=== PATIENT | female | born 1950 | race Caucasian/White ===

== ENCOUNTER → 2018-03-29 10:14 | Outpatient (CLI) | payer MEDICARE, SELFPAY ==
[2018-03-29 11:33] LABS: INR 1.4 (0.9-1.3); Prothrombin Time 16.4 SECONDS (10.1-12.7)
== END ==
PROVIDERS: Visit Provider Internal Medicine
DX: I26.99 Other pulmonary embolism without acute cor pulmonale (principal)
CPT/HCPCS: 36415; 85610

== ENCOUNTER → 2018-04-02 09:47 | Outpatient (CLI) | payer MEDICARE, SELFPAY ==
[2018-04-02 10:58] LABS: INR 2.4 (0.9-1.3); Prothrombin Time 28.2 SECONDS (10.1-12.7)
== END ==
PROVIDERS: PCP Internal Medicine; Visit Provider Internal Medicine
DX: I26.99 Other pulmonary embolism without acute cor pulmonale (principal); I82.90 Acute embolism and thrombosis of unspecified vein
CPT/HCPCS: 36415; 85610

== ENCOUNTER → 2018-04-10 10:06 | Outpatient (CLI) | payer MEDICARE, SELFPAY ==
[2018-04-10 11:11] LABS: INR 2.4 (0.9-1.3); Prothrombin Time 28.6 SECONDS (10.1-12.7)
== END ==
PROVIDERS: Family Provider Family Medicine; PCP Internal Medicine; Visit Provider Internal Medicine
DX: I82.90 Acute embolism and thrombosis of unspecified vein (principal)
CPT/HCPCS: 36415; 85610

== ENCOUNTER → 2018-04-17 10:05 | Outpatient (CLI) | payer MEDICARE, SELFPAY ==
[2018-04-17 10:59] LABS: INR 1.7 (0.9-1.3); Prothrombin Time 19.2 SECONDS (10.1-12.7)
[2018-04-17 11:43] LABS: Hepatitis B Surface Antigen NEGATIVE s/c (NEGATIVE)
[2018-04-17 11:54] LABS: HIV 1 and 2 Antibody NEGATIVE (NEGATIVE); Hep C Virus Ab w/Reflex Quant NEGATIVE s/c (NEGATIVE)
== END ==
PROVIDERS: Family Provider Family Medicine; PCP Internal Medicine; Visit Provider Internal Medicine
DX: I82.90 Acute embolism and thrombosis of unspecified vein (principal); I26.99 Other pulmonary embolism without acute cor pulmonale; Z71.1 Person with feared health complaint in whom no diagnosis is made
CPT/HCPCS: 36415; 85610; 86703; 86803; 87340

== ENCOUNTER → 2018-05-15 09:05 | Outpatient (CLI) | payer MEDICARE, SELFPAY ==
[2018-05-15 10:35] LABS: INR 1.1 (0.9-1.3); Prothrombin Time 12.3 SECONDS (10.1-12.7)
== END ==
PROVIDERS: Family Provider Family Medicine; PCP Internal Medicine; Visit Provider Internal Medicine
DX: I82.90 Acute embolism and thrombosis of unspecified vein (principal); I26.99 Other pulmonary embolism without acute cor pulmonale
CPT/HCPCS: 36415; 85610

== ENCOUNTER → 2018-05-26 10:40 | Outpatient (CLI) | payer MEDICARE, SELFPAY ==
[2018-05-26 12:08] LABS: INR 1.2 (0.9-1.3); Prothrombin Time 14.5 SECONDS (10.1-12.7)
== END ==
PROVIDERS: PCP Internal Medicine; Visit Provider Internal Medicine
DX: I82.90 Acute embolism and thrombosis of unspecified vein (principal)
CPT/HCPCS: 36415; 85610

== ENCOUNTER → 2018-06-04 08:47 | Outpatient (CLI) | payer MEDICARE, SELFPAY ==
[2018-06-04 09:33] LABS: INR 1.8 (0.9-1.3); Prothrombin Time 21.6 SECONDS (10.1-12.7)
== END ==
PROVIDERS: PCP Internal Medicine; Visit Provider Internal Medicine
DX: I26.99 Other pulmonary embolism without acute cor pulmonale (principal)
CPT/HCPCS: 36415; 85610

== ENCOUNTER → 2018-06-26 10:29 | Outpatient (CLI) | payer MEDICARE, SELFPAY ==
[2018-06-26 11:11] LABS: INR 1.6 (0.9-1.3)
== END ==
PROVIDERS: PCP Internal Medicine; Visit Provider Internal Medicine
DX: I26.99 Other pulmonary embolism without acute cor pulmonale (principal)
CPT/HCPCS: 36415; 85610

== ENCOUNTER → 2018-08-07 10:13 | Outpatient (CLI) | payer MEDICARE, SELFPAY ==
[2018-08-07 11:53] LABS: Alanine Aminotransferase 12 IU/L (9-52); Albumin 4.3 g/dL (3.5-5.0); Albumin Globulin Ratio 1.3 (1.0-2.8); Alkaline Phosphatase 69 U/L (38-126); Aspartate Aminotransferase 23 IU/L (14-36); BUN Creatinine Ratio 27.3 (6-22); Bilirubin Total 0.7 mg/dL (0.2-1.3); Blood Urea Nitrogen 30 mg/dL (7-17); Calcium 9.9 mg/dL (8.4-10.2); Carbon Dioxide 32 mmol/L (22-32); Chloride 100 mmol/L (98-107); Cholesterol 206 mg/dL (140-199); Estimated Glomerular Filt Rate 49.7 mL/min (>60); Globulin 3.4 g/dL (1.7-4.1); Glucose 94 mg/dL (80-110); HDL Cholesterol 68 mg/dL (40-60); HEMOLYSIS < 15 (0-50); LDL Cholesterol Calculated 121 mg/dL (<100); Potassium 4.8 mmol/L (3.4-5.1); Sodium 139 mmol/L (137-145); Total Protein 7.7 g/dL (6.3-8.2); Triglycerides 83 mg/dL (35-150)
[2018-08-07 16:12] LABS: Creatinine Urine Random 174.3 mg/dL
[2018-08-07 16:14] LABS: Microalbumin Urine Random 1.4 mg/dL (0-1.6)
== END ==
PROVIDERS: PCP Internal Medicine; Visit Provider Physician Assistant
DX: I10 Essential (primary) hypertension (principal); Z13.220 Encounter for screening for lipoid disorders; Z13.6 Encounter for screening for cardiovascular disorders
CPT/HCPCS: 36415; 80053; 80061; 82043; 82570

== ENCOUNTER → 2018-09-10 14:49 | Outpatient (CLI) | payer MEDICARE, SELFPAY ==
--- NOTE | 2018-09-10 14:51 | DI.MG.S_ITS ---
BILATERAL DIGITAL SCREENING MAMMOGRAM 3D/2D WITH CAD: 09/10/2018 CLINICAL: Routine screening. Comparison is made to exams dated: 12/19/2014 mammogram, 10/28/2011 mammogram, and 12/08/2008 mammogram - [facility]. The tissue of both breasts is predominantly fatty. Current study was also evaluated with a Computer Aided Detection (CAD) system. There is an oval equal density focal asymmetry with an indistinct and circumscribed margin in the left breast at 6 o'clock middle depth. No other significant masses, calcifications, or other findings are seen in either breast. IMPRESSION: INCOMPLETE: NEEDS ADDITIONAL IMAGING EVALUATION The oval equal density focal asymmetry in the left breast is indeterminate. Mediolateral and spot compression views as well as additional views with possible ultrasound are recommended. This exam was interpreted at Station ID: [id number]. NOTE: For mammograms, a report in lay terms will be sent to the patient. Approximately 15% of breast malignancies will not be visualized mammographically. In the management of a palpable breast mass, a negative mammogram must not discourage biopsy of a clinically suspicious lesion. Electronically Signed By: Jhonny zapata/tabby:09/10/2018 16:53:16 letter sent: Additional Imaging Needed ACR BI-RADS Category 0: Incomplete 3340F
== END ==
PROVIDERS: PCP Physician Assistant; Visit Provider Physician Assistant
DX: Z12.31 Encounter for screening mammogram for malignant neoplasm of breast (principal)
CPT/HCPCS: 77063; 77067

== ENCOUNTER → 2018-09-25 09:23 | Outpatient (CLI) | payer MEDICARE, SELFPAY | PROVIDERS: PCP Physician Assistant; Visit Provider Physician Assistant | DX: Z12.11 Encounter for screening for malignant neoplasm of colon (principal) | CPT/HCPCS: 82274 ==

== ENCOUNTER → 2018-10-01 08:45 | Outpatient (CLI) | payer MEDICARE, SELFPAY ==
--- NOTE | 2018-10-01 08:48 | DI.US.S_ITS ---
LIMITED ULTRASOUND OF LEFT BREAST: 10/01/2018 CLINICAL: Patient returns today to evaluate a focal asymmetry in the left breast. Comparison is made to exams dated: 10/01/2018 mammogram, 09/10/2018 mammogram, and 12/19/2014 mammogram - [facility]. Color flow and real-time ultrasound of the left breast 4-6 o'clock region were performed. Vogt scale images of the real-time examination were reviewed. There is a 0.7 x 0.5 x 0.3 cm oval iindistinct hypoechoic probable complicated cyst versus intramammary lymph node with no vascularity on Doppler ultrasound located in the left breast at 4 o'clock 5 cm from the nipple. This appears to correlate with the finding seen on mammography. IMPRESSION: PROBABLY BENIGN 0.7 x 0.5 x 0.3 cm probable complicated cyst versus intramammary lymph node in the left breast at 4 o'clock 5 cm from the nipple. A follow-up mammogram and an ultrasound in 6 months is recommended to demonstrate stability. The patient is advised to monitor her breasts and to return sooner for re-evaluation should she feel anything grow or change. This exam was interpreted at Station ID: [id number]. Electronically Signed By: Francis Westbrook M.D. ecl/:10/01/2018 11:42:37 letter sent: Followup Recommended Ultrasound BI-RADS: 3 Probably benign
--- NOTE | 2018-10-01 08:48 | DI.MG.S_ITS ---
UNILATERAL LEFT DIGITAL DIAGNOSTIC MAMMOGRAM 3D/2D WITH ADDITIONAL VIEWS: 10/01/2018 CLINICAL: Additional evaluation requested from prior study. Comparison is made to exams dated: 09/10/2018 mammogram, 12/19/2014 mammogram, and 10/28/2011 mammogram - [facility]. There are scattered fibroglandular elements in left breast. Previously identified oval equal density focal asymmetry with an indistinct and circumscribed margin in the left breast at 6 o'clock middle depth on comparison screening mammograms of 09/10/18 persists with additional views, and localizes to slightly more lateral in the lower outer quadrant of the left breast on spot compression views. Vascular calcifications are noted. No other significant masses, calcifications, or other findings are seen in the breast. IMPRESSION: INCOMPLETE: NEEDS ADDITIONAL IMAGING EVALUATION Previously identified oval equal density focal asymmetry with an indistinct and circumscribed margin in the left breast at 6 o'clock middle depth on comparison screening mammograms of 09/10/18 persists with additional views, and localizes to slightly more lateral in the lower outer quadrant of the left breast on spot compression views. A targeted ultrasound is recommended for further evaluation, and will be performed immediately following this exam. This exam was interpreted at Station ID: [id number]. NOTE: For mammograms, a report in lay terms will be sent to the patient. Approximately 15% of breast malignancies will not be visualized mammographically. In the management of a palpable breast mass, a negative mammogram must not discourage biopsy of a clinically suspicious lesion. Electronically Signed By: Francis Westbrook M.D. ecl/:10/01/2018 11:39:28 ACR BI-RADS Category 0: Incomplete 3340F
== END ==
PROVIDERS: PCP Physician Assistant; Visit Provider Nurse Practitioner
DX: R92.8 Other abnormal and inconclusive findings on diagnostic imaging of breast (principal); N64.89 Other specified disorders of breast
CPT/HCPCS: 76642; 77065; G0279

== ENCOUNTER → 2018-10-15 11:13 | Outpatient (CLI) | payer MEDICARE, SELFPAY ==
[2018-10-17 19:46] LABS: Fecal Immunochemical Test NOT DETECTED (NOT DETECTED)
== END ==
PROVIDERS: PCP Physician Assistant; Visit Provider Physician Assistant
DX: Z12.11 Encounter for screening for malignant neoplasm of colon (principal)
CPT/HCPCS: 82274

== ENCOUNTER → 2019-01-28 10:49 | Outpatient (CLI) | payer MEDICARE, SELFPAY ==
[2019-01-28 13:23] LABS: Blood Urea Nitrogen 21 mg/dL (7-17); Calcium 9.9 mg/dL (8.4-10.2); Carbon Dioxide 28 mmol/L (22-32); Chloride 105 mmol/L (98-107); Estimated Glomerular Filt Rate 55.5 mL/min (>60); Glucose 130 mg/dL (80-110); HEMOLYSIS < 15 (0-50); Potassium 4.8 mmol/L (3.4-5.1); Sodium 142 mmol/L (137-145)
== END ==
PROVIDERS: PCP Physician Assistant; Visit Provider Physician Assistant
DX: I10 Essential (primary) hypertension (principal); R79.89 Other specified abnormal findings of blood chemistry
CPT/HCPCS: 36415; 80048

== ENCOUNTER → 2019-09-05 09:02 | Outpatient (CLI) | payer MEDICARE, SELFPAY ==
--- NOTE | 2019-09-05 09:03 | DI.MG.S_ITS ---
UNILATERAL LEFT DIGITAL DIAGNOSTIC MAMMOGRAM 3D/2D SHORT-TERM FOLLOW-UP: 09/05/2019 CLINICAL: Short follow up left. Comparison is made to exams dated: 10/01/2018 mammogram, 09/10/2018 mammogram, and 12/19/2014 mammogram - [facility]. The tissue of left breast is predominantly fatty. There is an oval equal density focal asymmetry with an obscured margin in the left breast at 7 o'clock middle depth. This is not significantly changed. No other significant masses or calcifications are seen in the breast. IMPRESSION: INCOMPLETE: NEEDS ADDITIONAL IMAGING EVALUATION The oval equal density focal asymmetry in the left breast is indeterminate. Further evaluation by sonogram is recommended which is scheduled to immediately follow this examination. This exam was interpreted at Station ID: [id number]. NOTE: For mammograms, a report in lay terms will be sent to the patient. Approximately 15% of breast malignancies will not be visualized mammographically. In the management of a palpable breast mass, a negative mammogram must not discourage biopsy of a clinically suspicious lesion. Electronically Signed By: Manohar gil/:09/05/2019 09:26:16 copy to: RAMIRO MOSS ACR BI-RADS Category 0: Incomplete 3340F
--- NOTE | 2019-09-05 09:03 | DI.US.S_ITS ---
ULTRASOUND OF LEFT BREAST: 09/05/2019 CLINICAL: 6 month follow-up of cysts. Comparison is made to exams dated: 09/05/2019 mammogram, 10/01/2018 ultrasound, and 10/01/2018 mammogram - [facility]. Color flow and real-time ultrasound of the left breast were performed. Vogt scale images of the real-time examination were reviewed. There is a 0.5 cm x 0.3 cm x 0.4 cm oval mass with an indistinct margin in the left breast at 4 o'clock middle depth 5 cm from the nipple. This oval mass is hypoechoic. This abnormality is decreased in size and appears to correlate with mammography findings. Color flow imaging demonstrates that there is no vascularity present. IMPRESSION: PROBABLY BENIGN The 0.5 cm x 0.3 cm x 0.4 cm oval mass in the left breast resembles a complicated cyst or an intramammary lymph node and is probably benign. A 1 year screening right mammogram, left diagnostic mammogram, and a left ultrasound is recommended to document two years of stability. Findings and recommendations were relayed to the patient during today's visit. This exam was interpreted at Station ID: [id number]. Electronically Signed By: Manohar Marin M.D. aty/:09/05/2019 10:53:44 copy to: RAMIRO MOSS letter sent: Followup Recommended Ultrasound BI-RADS: 3 Probably benign
== END ==
PROVIDERS: PCP Physician Assistant; Referring Provider Nurse Practitioner Family; Visit Provider Nurse Practitioner Family
DX: R92.8 Other abnormal and inconclusive findings on diagnostic imaging of breast (principal); N63.23 Unspecified lump in the left breast, lower outer quadrant
CPT/HCPCS: 76642; 77065; G0279

== ENCOUNTER → 2019-10-01 13:33 | Outpatient (CLI) | payer MEDICARE, SELFPAY ==
[2019-10-01 14:27] LABS: Hemoglobin A1C% w Est Avg Glu 5.8 % (4.0-6.0)
[2019-10-01 15:23] LABS: BUN Creatinine Ratio 30.5 (6-22); Blood Urea Nitrogen 25 mg/dL (7-17); Calcium 9.3 mg/dL (8.4-10.2); Carbon Dioxide 30 mmol/L (22-32); Chloride 104 mmol/L (98-107); Estimated Glomerular Filt Rate > 60.0 mL/min (>60); Glucose 151 mg/dL (80-110); HEMOLYSIS < 15 (0-50); Potassium 5.1 mmol/L (3.4-5.1); Sodium 140 mmol/L (137-145)
[2019-10-01 15:40] LABS: Vitamin D 25 Hydroxy (D3) 18.3 ng/mL (30.0-100.0)
== END ==
PROVIDERS: PCP Student in an Organized Health Care Education/Training Program; Referring Provider Student in an Organized Health Care Education/Training Program; Visit Provider Student in an Organized Health Care Education/Training Program
DX: I10 Essential (primary) hypertension (principal); E66.01 Morbid (severe) obesity due to excess calories; E55.9 Vitamin D deficiency, unspecified
CPT/HCPCS: 36415; 80048; 82306; 83036

== ENCOUNTER → 2019-11-29 15:54 | Outpatient (CLI) | payer MEDICARE, SELFPAY ==
[2019-12-01 15:07] LABS: COVID19 Sendout Not Detected (Not Detect)
== END ==
PROVIDERS: PCP Student in an Organized Health Care Education/Training Program; Visit Provider Physician Assistant
DX: Z11.59 Encounter for screening for other viral diseases (principal)
CPT/HCPCS: 87635

== ENCOUNTER → 2019-12-02 12:43 | Outpatient (CLI) | payer MEDICARE, SELFPAY ==
[2019-12-03 12:21] LABS: Fecal Immunochemical Test Negative (Negative)
== END ==
PROVIDERS: PCP Student in an Organized Health Care Education/Training Program; Referring Provider Student in an Organized Health Care Education/Training Program; Visit Provider Student in an Organized Health Care Education/Training Program
DX: Z12.11 Encounter for screening for malignant neoplasm of colon (principal); Z86.010 Personal history of colon polyps
CPT/HCPCS: 82274

== ENCOUNTER → 2020-06-02 12:52 | Outpatient (CLI) | payer MEDICARE, SELFPAY ==
[2020-06-02] MEDS: COVID-19 VACC #1, MRNA(MOD) 100 MCG/0.5 ML VIAL IM (13:15)
== END ==
PROVIDERS: PCP Student in an Organized Health Care Education/Training Program; Visit Provider Internal Medicine
DX: Z23 Encounter for immunization (principal)
CPT/HCPCS: 0011A; 91301

== ENCOUNTER → 2020-07-01 13:00 | Outpatient (CLI) | payer MEDICARE, SELFPAY ==
[2020-07-01] MEDS: COVID-19 VACC #2, MRNA(MOD) 100 MCG/0.5 ML VIAL IM (13:13)
== END ==
PROVIDERS: PCP Student in an Organized Health Care Education/Training Program; Visit Provider Internal Medicine
DX: Z23 Encounter for immunization (principal)
CPT/HCPCS: 0012A; 91301

== ENCOUNTER → 2020-09-05 14:30 | Outpatient (CLI) | payer MEDICARE, SELFPAY ==
--- NOTE | 2020-09-05 14:31 | DI.MG.S_ITS ---
BILATERAL DIGITAL SCREENING MAMMOGRAM 3D/2D WITH CAD: 09/05/2020 CLINICAL: Routine screening. Comparison is made to exams dated: 09/05/2019 mammogram, 10/01/2018 mammogram, and 09/10/2018 mammogram - [facility]. The tissue of both breasts is predominantly fatty. Current study was also evaluated with a Computer Aided Detection (CAD) system. There is a stable oval focal asymmetry in the left breast at 7 o'clock middle depth. No other significant masses, calcifications, or other findings are seen in either breast. IMPRESSION: INCOMPLETE: NEEDS ADDITIONAL IMAGING EVALUATION Stable oval focal asymmetry in the left breast remains indeterminate. An ultrasound was previously recommended to demonstrate 2 years stability this mass. This exam was interpreted at Station ID: [id number]. NOTE: For mammograms, a report in lay terms will be sent to the patient. Approximately 15% of breast malignancies will not be visualized mammographically. In the management of a palpable breast mass, a negative mammogram must not discourage biopsy of a clinically suspicious lesion. Electronically Signed By: Alberto Price M.D. slc/:09/07/2020 08:54:43 Entry: - 09/07/2020 09:02:22 copy to: RAMIRO MOSS letter sent: Need Ultrasound ACR BI-RADS Category 0: Incomplete 3340F
== END ==
PROVIDERS: PCP Student in an Organized Health Care Education/Training Program; Referring Provider Student in an Organized Health Care Education/Training Program; Visit Provider Student in an Organized Health Care Education/Training Program
DX: Z12.31 Encounter for screening mammogram for malignant neoplasm of breast (principal)
CPT/HCPCS: 77063; 77067

== ENCOUNTER → 2020-09-21 12:47 | Outpatient (CLI) | payer MEDICARE, SELFPAY ==
--- NOTE | 2020-09-21 12:48 | DI.US.S_ITS ---
LIMITED ULTRASOUND OF LEFT BREAST: 09/21/2020 CLINICAL: Patient returns today to evaluate a focal asymmetry in the left breast. Comparison is made to exams dated: 09/05/2020 mammogram, 09/05/2019 mammogram, 09/05/2019 ultrasound, 10/01/2018 ultrasound, 10/01/2018 mammogram, and 09/10/2018 mammogram - [facility]. Color flow and real-time ultrasound of the left breast 4 o'clock region were performed. Vogt scale images of the real-time examination were reviewed. There is a 1 cm x 0.5 cm x 0.4 cm oval mass with a microlobulated margin in the left breast at 7 o'clock middle depth 5 cm from the nipple. This oval mass is hypoechoic with an abrupt boundary. This abnormality has increased in size and correlates with mammography findings. Color flow imaging demonstrates that there is no vascularity present. IMPRESSION: PROBABLY BENIGN The 1 cm oval mass in the left breast has increased in size after decreasing between the initial and prior study. It has a differential diagnosis of clustered cysts, a lymph node, a fibroadenoma, or less likely indolent carcinoma, but is probably benign. A follow-up left ultrasound in 6 months is recommended for continued surveillance given lack of two year stability. Findings and recommendations were conveyed to the patient at time of exam. This exam was interpreted at Station ID: [id number]. Electronically Signed By: Zuleyka espinoza/:09/21/2020 13:49:11 copy to: RAMIRO MOSS letter sent: Followup Recommended Ultrasound BI-RADS: 3 Probably benign
== END ==
PROVIDERS: PCP Student in an Organized Health Care Education/Training Program; Referring Provider Student in an Organized Health Care Education/Training Program; Visit Provider Student in an Organized Health Care Education/Training Program
DX: N63.20 Unspecified lump in the left breast, unspecified quadrant (principal); R92.8 Other abnormal and inconclusive findings on diagnostic imaging of breast
CPT/HCPCS: 76642

== ENCOUNTER → 2020-10-02 08:14 | Outpatient (CLI) | payer MEDICARE, SELFPAY ==
[2020-10-02 08:44] LABS: Hemoglobin A1C% w Est Avg Glu 5.5 % (4.0-6.0)
[2020-10-02 08:51] LABS: BUN Creatinine Ratio 25.5 (6-22); Blood Urea Nitrogen 24 mg/dL (7-17); Calcium 9.6 mg/dL (8.4-10.2); Carbon Dioxide 30 mmol/L (22-32); Chloride 104 mmol/L (98-107); Estimated Glomerular Filt Rate 59.2 mL/min (>60); Glucose 108 mg/dL (80-110); HEMOLYSIS < 15 (0-50); Potassium 4.6 mmol/L (3.4-5.1); Sodium 141 mmol/L (137-145)
[2020-10-02 09:13] LABS: Vitamin D 25 Hydroxy (D3) 22.1 ng/mL (30.0-100.0)
== END ==
PROVIDERS: PCP Student in an Organized Health Care Education/Training Program; Referring Provider Student in an Organized Health Care Education/Training Program; Visit Provider Student in an Organized Health Care Education/Training Program
DX: E55.9 Vitamin D deficiency, unspecified (principal); R73.03 Prediabetes; I10 Essential (primary) hypertension
CPT/HCPCS: 36415; 80048; 82306; 83036

== ENCOUNTER → 2021-02-20 09:50 | Outpatient (CLI) | payer MEDICARE, SELFPAY ==
[2021-02-20 10:17] LABS: COVID19 -Nasal RAPID Negative (Negative)
== END ==
PROVIDERS: PCP Student in an Organized Health Care Education/Training Program; Visit Provider Nurse Practitioner Family
DX: Z20.822 Contact with and (suspected) exposure to COVID-19 (principal)
CPT/HCPCS: 87635

== ENCOUNTER → 2021-02-20 09:58 | Outpatient (CLI) | payer MEDICARE, MEDICAID, SELFPAY ==
--- NOTE | 2021-02-20 10:00 | DI.RAD.S_ITS ---
PROCEDURE: XR CHEST 2V INDICATIONS: cough TECHNIQUE: 2 views of the chest were acquired. COMPARISON: [facility], , CHEST 2 VIEW, 09/21/2013, 8:08. FINDINGS: Surgical changes and devices: Left shoulder arthroplasty. Lungs and pleura: Lungs are clear. No pleural effusions or pneumothorax. Mediastinum: Mediastinal contours are normal. Heart size is normal. Bones and chest wall: No suspicious bony abnormalities. Soft tissues appear unremarkable. IMPRESSION: No acute process. Dictated by: Odin Fermin M.D. on 02/20/2021 at 9:11 Approved by: Odin Fermin M.D. on 02/20/2021 at 9:11
== END ==
PROVIDERS: PCP Student in an Organized Health Care Education/Training Program; Referring Provider Nurse Practitioner Family; Visit Provider Nurse Practitioner Family
DX: R05.9 Cough, unspecified (principal); Z20.822 Contact with and (suspected) exposure to COVID-19
CPT/HCPCS: 71046; 87635

== ENCOUNTER → 2021-04-29 09:48 | Outpatient (CLI) | payer MEDICARE, MEDICAID, SELFPAY | PROVIDERS: PCP Student in an Organized Health Care Education/Training Program; Referring Provider Student in an Organized Health Care Education/Training Program; Visit Provider Student in an Organized Health Care Education/Training Program | DX: E55.9 Vitamin D deficiency, unspecified (principal) | CPT/HCPCS: 36415; 82306 ==

== ENCOUNTER → 2021-06-02 14:37 | Outpatient (CLI) | payer MEDICARE, MEDICAID, SELFPAY | PROVIDERS: PCP Student in an Organized Health Care Education/Training Program; Referring Provider Student in an Organized Health Care Education/Training Program; Visit Provider Student in an Organized Health Care Education/Training Program | DX: Z13.820 Encounter for screening for osteoporosis; M85.88 Other specified disorders of bone density and structure, other site; Z78.0 Asymptomatic menopausal state | CPT/HCPCS: 77080 ==

== ENCOUNTER → 2021-06-22 13:24 | Outpatient (CLI) | payer MEDICARE, MEDICAID, SELFPAY ==
[2021-06-22 15:43] LABS: Add Manual Diff / Slide Review NO; Basophils Absolute Auto 0 /uL (0-100); Basophils Percent Auto 0.6 % (0-2); Eosinophils Absolute Auto 300 /uL (0-450); Eosinophils Percent Auto 4.1 % (2-4); Hematocrit 40.8 % (36-46); Hemoglobin 13.5 g/dL (12.0-16.0); Lymphocytes Absolute Auto 1700 /uL (1100-4500); Lymphocytes Percent Auto 23.1 % (25-40); Mean Corpuscular HGB Conc 33.1 % (30-36); Mean Corpuscular Hemoglobin 29.5 PG (26-34); Mean Corpuscular Volume 89.2 fL (80-100); Monocytes Absolute Auto 500 /uL (0-900); Neutrophils Absolute Auto 4700 /uL (1500-7000); Neutrophils Percent Auto 65.2 % (50-75); Platelet Count 292 X10^3/uL (150-400); Red Blood Cell Count 4.58 X10^6/uL (4.0-5.2); Red Cell Distribution Width 13.6 % (11.6-14.8); White Blood Cell Count 7.2 X10^3/uL (4.5-11.0)
[2021-06-22 16:13] LABS: Alanine Aminotransferase 19 IU/L (<35); Albumin 4.6 g/dL (3.5-5.0); Albumin Globulin Ratio 1.3 (1.0-2.8); Alkaline Phosphatase 56 U/L (38-126); Aspartate Aminotransferase 30 IU/L (14-36); BUN Creatinine Ratio 21.9 (6-22); Bilirubin Total 0.4 mg/dL (0.2-1.3); Blood Urea Nitrogen 21 mg/dL (7-17); Calcium 9.7 mg/dL (8.4-10.2); Carbon Dioxide 31 mmol/L (22-32); Chloride 98 mmol/L (98-107); Estimated Glomerular Filt Rate > 60.0 mL/min (>60); Globulin 3.5 g/dL (1.7-4.1); Glucose 107 mg/dL (80-110); HEMOLYSIS < 15 (0-50); Potassium 4.5 mmol/L (3.4-5.1); Sodium 140 mmol/L (137-145); Total Protein 8.1 g/dL (6.3-8.2)
[2021-06-22 16:30] LABS: Vitamin D 25 Hydroxy (D3) 51.9 ng/mL (30.0-100.0)
== END ==
PROVIDERS: PCP Student in an Organized Health Care Education/Training Program; Referring Provider Student in an Organized Health Care Education/Training Program; Visit Provider Student in an Organized Health Care Education/Training Program
DX: I10 Essential (primary) hypertension (principal); E55.9 Vitamin D deficiency, unspecified; M27.69 Other endosseous dental implant failure; R73.03 Prediabetes; Z77.29 Contact with and (suspected) exposure to other hazardous substances
CPT/HCPCS: 36415; 80053; 82306; 85025

== ENCOUNTER → 2021-10-13 12:36 | Outpatient (CLI) | payer MEDICARE, MEDICAID, SELFPAY ==
--- NOTE | 2021-10-13 12:37 | DI.MG.S_ITS ---
BILATERAL DIGITAL DIAGNOSTIC MAMMOGRAM 3D/2D SHORT-TERM FOLLOW-UP: 10/13/2021 CLINICAL: Short term follow up of the left breast, due for bilateral imaging. Comparison is made to exams dated: 09/05/2020 mammogram, 09/05/2019 mammogram, 10/01/2018 mammogram, 09/10/2018 mammogram, 09/21/2020 ultrasound, and 09/05/2019 ultrasound - [facility]. The tissue of both breasts is predominantly fatty. There is an oval focal asymmetry in the left breast at 7 o'clock middle depth. This is not significantly changed. No other significant masses, calcifications, or other findings are seen in either breast. IMPRESSION: INCOMPLETE: NEEDS ADDITIONAL IMAGING EVALUATION The oval focal asymmetry in the left breast is indeterminate. An ultrasound is recommended. Further evaluation by sonogram is recommended which is scheduled to immediately follow this examination. Based on the Tyrer Cuzick model (a risk assessment model) the patient's lifetime risk is 2.5% and her 10 year risk is 1.4%. According to the ACR, ACS, and NCCN guidelines, an annual breast MRI exam along with mammogram is recommended if the patient's lifetime risk is 20% or greater. This exam was interpreted at Station ID: [id number]. NOTE: For mammograms, a report in lay terms will be sent to the patient. Approximately 15% of breast malignancies will not be visualized mammographically. In the management of a palpable breast mass, a negative mammogram must not discourage biopsy of a clinically suspicious lesion. Electronically Signed By: Alvaro kraft/tabby:10/13/2021 14:19:02 copy to: RAMIRO MOSS ACR BI-RADS Category 0: Incomplete 3340F
--- NOTE | 2021-10-13 12:38 | DI.US.S_ITS ---
LIMITED ULTRASOUND OF LEFT BREAST: 10/13/2021 CLINICAL: 6 month follow-up of comples cyst. Comparison is made to exams dated: 10/13/2021 mammogram, 09/21/2020 ultrasound, 09/05/2019 ultrasound, 10/01/2018 ultrasound, 10/01/2018 mammogram, and 09/05/2020 mammogram - [facility]. Color flow ultrasound of the left breast 4 o'clock region was performed. Vogt scale images of the real-time examination were reviewed. There is a 0.8 cm x 0.5 cm x 0.4 cm oval mass with a microlobulated margin in the left breast at 4 o'clock middle depth 5 cm from the nipple. This oval mass is hypoechoic with an abrupt boundary. This abnormality is not significantly changed when compared to the exam from 09/21/20, but appears increased in size when compared to more remote prior exams. Color flow imaging demonstrates that there is no vascularity present. IMPRESSION: PROBABLY BENIGN The 0.8 cm x 0.5 cm x 0.4 cm oval mass in the left breast has a differential diagnosis of clustered cysts, a solid mass, or a lymph node and is probably benign. Given prior increase in size, further follow up is recommended with diagnostic mammogram and left breast ultrasound in 12 months is recommended to demonstrate 2 year stability. This exam was interpreted at Station ID: [id number]. Electronically Signed By: Alvaro Schultz M.D. ar/:10/13/2021 14:25:47 copy to: RAMIRO MOSS letter sent: Followup Recommended Ultrasound BI-RADS: 3 Probably benign
== END ==
PROVIDERS: PCP Student in an Organized Health Care Education/Training Program; Referring Provider Internal Medicine; Visit Provider Internal Medicine
DX: R92.8 Other abnormal and inconclusive findings on diagnostic imaging of breast (principal); N63.23 Unspecified lump in the left breast, lower outer quadrant
CPT/HCPCS: 76642; 77066; G0279

== ENCOUNTER 2022-06-03 19:00 | Emergency (ER) | payer MEDICARE, MEDICAID, SELFPAY ==
[2022-06-03] VITALS (12 sets, daily range): BP systolic 163–206; BP diastolic 84–112; PULSE 64–85; RESP 15–18; TEMP 36.3–36.6; O2SAT 93–98; BMI 32.9
--- NOTE | 2022-06-03 19:31 | ED_ITS ---
HPI - Chest Pain General Chief Complaint: Chest Pain Stated Complaint: Chest/back pain 1 hr, r arm pain,cooling sensatio Time Seen by Provider: 06/03/22 19:03 History of Present Illness HPI narrative: 72-year-old female former smoker with history of hypertension, hyperlipidemia, what she reports as prediabetes presents with a chief complaint of an episode of chest pressure with radiation to her right shoulder that started while at rest about 1 hour prior to arrival. She denies obvious provocation or palliation. She denies associated symptoms such as nausea, vomiting or diarrhea. She does admit that she is becoming more fatigued with minimal exertion than she might expect. She is had no fever or chills. She denies any recent trauma, injury, history of blood clot. Related Data Home Medications Medication Instructions Recorded Confirmed tretinoin 0.05 % topical cream 1 applictn topical BEDTIME PRN 11/05/18 06/22/21 (Retin-A) cholecalciferol (vitamin D3) 125 125 mcg PO DAILY 10/02/20 06/22/21 mcg (5,000 unit) capsule Previous Rx's Medication Instructions Recorded diclofenac sodium 1 % topical gel 4 gram topical SEE INSTRUCTIONS 10/08/18 (Voltaren) PRN arthritis #100 grams lisinopril 20 mg tablet 20 mg PO BID #180 tabs 10/26/20 Allergies Allergy/AdvReac Type Severity Reaction Status Date / Time chlorthalidone AdvReac Severe GERD Verified 06/22/21 13:00 Review of Systems Review of Systems Narrative: GENERAL: Denies chills, fatigue, malaise, fever, sweats. HEENT: Denies sinus pain, ear pain, sore throat, difficulty swallowing, dizziness. RESPIRATORY: Denies dyspnea, cough, wheezing, hemoptysis, sputum. CARDIOVASCULAR: See HPI GASTROINTESTINAL: Denies nausea, vomiting, abdominal pain, diarrhea, constipation, melena. : Denies dysuria, frequency, incontinence, hematuria, urinary retention. MUSCULOSKELETAL: denies weakness, joint pain, or bony pain SKIN: Denies rash, skin lesions, or other NEUROLOGIC: Denies weakness, headache, numbness, change in speech, confusion, seizures, incoordination. PSYCHIATRIC: No concerning psychosocial issues. 12 point review of systems is negative except for those stated above Patient History Medical History Diverticulosis large intestine w/o perforation or abscess w/o bleeding Multiple actinic keratoses (10/01/14) Pulmonary embolism Social History Smoking Status: Former smoker (Smoled as a teenager) second hand exposure: No alcohol intake: never substance use type: does not use Smoking Status: Former smoker (Smoled as a teenager) Exam Narrative Exam Narrative: GENERAL: [72] year old patient appears stated age. Well-developed patient, in mild distress. HEAD: Atraumatic. Normocephalic. EYES: Pupils equal round and reactive. Extraocular motions intact. No scleral icterus. No injection or drainage. ENT: Nose without bleeding, purulent drainage. Throat without erythema, tonsillar hypertrophy or exudate. Airway patent. NECK: Trachea midline. Non tender CARDIOVASCULAR: Regular rate and rhythm without murmurs, gallops, or rubs. RESPIRATORY: Clear to auscultation. Breath sounds equal bilaterally. No wheezes, rales, or rhonchi. GASTROINTESTINAL: Abdomen soft, non-tender, nondistended. EXTREMITIES: No edema or joint tenderness. BACK: Nontender without deformity or crepitance. No flank tenderness. NEURO: AOx3. SKIN: No rash or erythema of visible areas Initial Vital Signs Initial Vital Signs: Vital Signs Temperature 97.3 F L 06/03/22 19:31 Pulse Rate 84 06/03/22 19:31 Respiratory Rate 16 06/03/22 19:31 Blood Pressure 182/112 H 06/03/22 19:31 Pulse Oximetry 97 06/03/22 19:31 Oxygen Delivery Method Room Air 06/03/22 19:31 Scores HEART Score Heart Score history: Moderately Suspicious Heart Score EKG: Normal Heart Score Age: > or = 65 years old Heart Score risk factors: > 3 risk factors or hx of atherosclerotic disease Heart Score troponin: < or = to normal limit Heart Score Total: 5 Course Orders Ordered: ED Orders 06/03/22 19:42 XR chest 1V Stat 06/03/22 19:47 EKG-12 Lead Stat 06/03/22 19:48 COVID19 -Nasal RAPID Stat Complete Blood Count AUTO DIFF Stat Comprehensive Metabolic Panel Stat Lipase Stat Magnesium Stat PTT Partial Thromboplastin Francois Stat Prothrombin Time INR Stat Troponin & CK Cardiac Panel Stat 06/03/22 20:59 EKG-12 Lead Stat 06/03/22 21:24 D Dimer Stat Troponin & CK Cardiac Panel Stat Discontinued Medications Aspirin (Aspirin 81 Mg Chew Tab) 324 mg PO NOW ONE Stop: 06/03/22 19:43 Last Admin: 06/03/22 20:18 Dose: 243 mg Documented By: WALTER Vital Signs Vital signs: Vital Signs - 8 hr 06/03/22 19:31 06/03/22 19:55 06/03/22 19:57 Temperature 97.3 F L Pulse Rate 84 85 83 Respiratory Rate 16 15 Blood Pressure 182/112 H Pulse Oximetry 97 98 97 Oxygen Delivery Method Room Air 06/03/22 19:57 06/03/22 20:00 06/03/22 20:00 Temperature Pulse Rate 77 Respiratory Rate 18 Blood Pressure 184/103 H 181/92 H Pulse Oximetry 96 Oxygen Delivery Method 06/03/22 20:30 06/03/22 20:30 06/03/22 21:00 Temperature Pulse Rate 75 Respiratory Rate 15 Blood Pressure 163/93 H 178/89 H Pulse Oximetry 96 Oxygen Delivery Method 06/03/22 21:00 06/03/22 21:30 06/03/22 21:30 Temperature Pulse Rate 68 68 Respiratory Rate 16 18 Blood Pressure 171/91 H Pulse Oximetry 93 95 Oxygen Delivery Method 06/03/22 22:00 06/03/22 22:00 06/03/22 22:30 Temperature Pulse Rate 64 Respiratory Rate 16 Blood Pressure 186/91 H 199/98 H Pulse Oximetry 94 Oxygen Delivery Method 06/03/22 22:30 06/03/22 23:00 06/03/22 23:00 Temperature Pulse Rate 65 65 Respiratory Rate 16 18 Blood Pressure 206/100 H Pulse Oximetry 96 96 Oxygen Delivery Method 06/03/22 23:30 06/03/22 23:30 06/03/22 23:57 Temperature 97.9 F Pulse Rate 69 78 Respiratory Rate 16 18 Blood Pressure 206/97 H 178/84 H Pulse Oximetry 97 96 Oxygen Delivery Method Room Air MDM - Chest Pain Lab Data 06/03/22 19:48 06/03/22 19:48 Labs: Lab Results 06/03/22 06/03/22 06/03/22 Range/Units 19:48 19:48 19:48 WBC 7.0 (4.5-11.0) X10^3/uL RBC 4.38 (4.0-5.2) X10^6/uL Hgb 13.0 (12.0-16.0) g/dL Hct 39.0 (36-46) % MCV 89.0 (80-100) fL MCH 29.8 (26-34) PG MCHC 33.5 (30-36) % RDW 13.8 (11.6-14.8) % Plt Count 296 (150-400) X10^3/uL Neut % (Auto) 58.1 (50-75) % Lymph % (Auto) 31.7 (25-40) % Mcdonald % (Auto) 6.3 (3-14) % Eos % (Auto) 3.1 (2-4) % Baso % (Auto) 0.8 (0-2) % Neut # (Auto) 4100 (9852-7360) /uL Lymph # (Auto) 2200 (5159-7260) /uL Mcdonald # (Auto) 400 (0-900) /uL Eos # (Auto) 200 (0-450) /uL Baso # (Auto) 100 (0-100) /uL PT 10.1 (10.1-12.7) SECONDS INR 0.9 (0.9-1.3) APTT 31 (26-36) SECONDS D-Dimer (<500) ng/ml Sodium 138 (137-145) mmol/L Potassium 3.8 (3.4-5.1) mmol/L Chloride 101 (98-107) mmol/L Carbon Dioxide 29 (22-32) mmol/L BUN 23 H (7-17) mg/dL Creatinine 0.85 (0.52-1.04) mg/dL Estimated GFR > 60 (>60) mL/min BUN/Creatinine Ratio 27.1 H (6-22) Glucose 158 H (80-110) mg/dL Calcium 9.2 (8.4-10.2) mg/dL Magnesium 1.8 (1.6-2.3) mg/dL Total Bilirubin 0.4 (0.2-1.3) mg/dL AST 29 (14-36) IU/L ALT 21 (<35) IU/L Alkaline Phosphatase 71 (38-126) U/L Total Creatine Kinase 56 (30-135) U/L CK-MB (CK-2) TNP CK-MB (CK-2) Rel Index TNP Troponin I < 0.012 (0.01-0.034) ng/mL Total Protein 8.0 (6.3-8.2) g/dL Albumin 4.3 (3.5-5.0) g/dL Globulin 3.7 (1.7-4.1) g/dL Albumin/Globulin Ratio 1.2 (1.0-2.8) Lipase 167 (23-300) U/L SARS-CoV-2 (PCR) (Negative) 06/03/22 06/03/22 06/03/22 Range/Units 19:48 21:24 21:24 WBC (4.5-11.0) X10^3/uL RBC (4.0-5.2) X10^6/uL Hgb (12.0-16.0) g/dL Hct (36-46) % MCV (80-100) fL MCH (26-34) PG MCHC (30-36) % RDW (11.6-14.8) % Plt Count (150-400) X10^3/uL Neut % (Auto) (50-75) % Lymph % (Auto) (25-40) % Mcdonald % (Auto) (3-14) % Eos % (Auto) (2-4) % Baso % (Auto) (0-2) % Neut # (Auto) (9872-2025) /uL Lymph # (Auto) (0210-7962) /uL Mcdonald # (Auto) (0-900) /uL Eos # (Auto) (0-450) /uL Baso # (Auto) (0-100) /uL PT (10.1-12.7) SECONDS INR (0.9-1.3) APTT (26-36) SECONDS D-Dimer 532 H (<500) ng/ml Sodium (137-145) mmol/L Potassium (3.4-5.1) mmol/L Chloride (98-107) mmol/L Carbon Dioxide (22-32) mmol/L BUN (7-17) mg/dL Creatinine (0.52-1.04) mg/dL Estimated GFR (>60) mL/min BUN/Creatinine Ratio (6-22) Glucose (80-110) mg/dL Calcium (8.4-10.2) mg/dL Magnesium (1.6-2.3) mg/dL Total Bilirubin (0.2-1.3) mg/dL AST (14-36) IU/L ALT (<35) IU/L Alkaline Phosphatase (38-126) U/L Total Creatine Kinase 54 (30-135) U/L CK-MB (CK-2) TNP CK-MB (CK-2) Rel Index TNP Troponin I < 0.012 (0.01-0.034) ng/mL Total Protein (6.3-8.2) g/dL Albumin (3.5-5.0) g/dL Globulin (1.7-4.1) g/dL Albumin/Globulin Ratio (1.0-2.8) Lipase (23-300) U/L SARS-CoV-2 (PCR) Positive H (Negative) MDM Narrative Medical decision making narrative: [72] year old patient presents with chest pain with radiation to her right shoulder, largely resolved at time of arrival Multiple etiologies for patient's symptoms considered including, but not limited to: [Cardiac ischemia, dissection, hypertensive emergency, pneumonia versus other] Prior Charts reviewed in our EMR Primary Historian: patient Labs reviewed and interpreted by myself: No leukocytosis or left shift, no signs of anemia. Electrolytes and kidney function within normal, troponin x2 negative, D-dimer slightly elevated but negative when corrected for age, no need to pursue CTA of the chest for pulmonary embolism per the [facility] PE algorithm Imaging reviewed:CXR without acute process Patient had been flipped for admission and while waiting for hospitalist to call back patient had asked nursing to contact me as she wanted to leave. She states very clearly that she understands my concerns and the risks associated which include but are not limited to permanent disability and . We discussed the concerning elements of her history, the heart score and it is suggestion that she could be high-risk and is inappropriate for discharge. She is of sound mind and judgment and can demonstrate capacity to make her own decisions. She is speaking clearly and understands the risks of her decision. She actually chuckled and states she would actually prefer to at home that were the case. She understands that she may return for any change in her decision-making and has had questions answered to her apparent satisfaction Discharge Plan Departure Patient Disposition: Left Against Medical Advice Clinical Impression: Chest pain, COVID-19 Activity Restrictions/Additional Instructions: *You have been diagnosed with [chest pain, which as we discussed is concerning based on your story and exam and although your labs and EKGs are unremarkable would really prefer to keep you in the hospital to work this up further. We discussed this at length and you demonstrated to me your ability to understand the risks and benefits of this decision, you also made it clear that you understand that you will return for any worsening symptoms.] *What to do: * please start taking a baby aspirin (81 mg) every day. Otherwise please continue to take your regular medications as directed. [ ] New medication prescriptions sent to your pharmacy: [ ] [ ] New medication written as a paper prescription [ ] No new medications given *Please follow up with your primary care provider in 2-3 days, call for an appointment. Let them know you were seen in the Emergency Department and that we ask that you be seen in follow up. We will electronically transmit a record of today's note if your PCP is in our system *Return to Emergency Department if you should have any new, worsening or concerning symptoms, such as [fever greater than 101 F, shaking chills, worsening pain, persistent vomiting or other bothersome symptoms] *You have been diagnosed with [ COVID-19] *What to do: ?* per recommendations from the CDC and the [facility] Department of Health ?* stay home except to get medical care. ?Restrict activities outside your home, except for getting medical care. ?Do not go to work, school, or public areas. ?Avoid using public transportation, ride sharing, or taxis. ?* separate yourself from other people in your home. ?* call ahead before visiting your doctor ?* Wear a facemask ?* Cover your coughs and sneezes ?* Clean your hands often ?* Avoid sharing household items ?* Clean all high-touch services every day ?* Monitor your symptoms and seek prompt medical attention if your illness is worsening, particularly with difficulty in breathing. You may discontinue your isolation when: ?1. You have been fever-free for at least 24 hours without the use of fever reducing medication, AND ?2. Your symptoms are getting better, AND ?3. At least 5 days have passed since symptoms first appeared ?4. If you have fever, continue to stay home until fever resolves Individuals with laboratory confirmed COVID-19 who have not had any symptoms may discontinue home isolation when at least 5 days have passed since the date of their first COVID-19 diagnostic test and have had no subsequent illness You should notifiy any friends and family that have been in close contact *If up to date on COVID Vaccines, then they do not need to quarantine unless symptoms develop. Get tested on day 5 (or sooner if symptoms develop). Take precautions and watch for symptoms until day 10 *If NOT up to date on COVID Vaccines, then CDC recommends quarantine for at least 5 full days. Wear a well fitted mask at home if you must be around others. If they ?develop symptoms they should get tested. If they remain asymptomatic they should get tested on day 5. They should take precautions and monitor for symptoms until day 10. Prescriptions: No Action cholecalciferol (vitamin D3) 125 mcg (5,000 unit) capsule 125 mcg PO DAILY lisinopril 20 mg tablet 20 mg PO BID Qty: 180 3RF tretinoin [Retin-A] 0.05 % cream 1 applictn TOP BEDTIME PRN diclofenac sodium [Voltaren] 1 % gel 4 gram Topical SEE INSTRUCTIONS PRN (Reason: arthritis) Qty: 100 1RF Rx Instructions: Apply 4 grams to left shoulder up to 4 times daily as needed for arthritis pain Stand Alone Forms: Against Medical Advice
--- NOTE | 2022-06-03 19:42 | DI.RAD.S_ITS ---
PROCEDURE: XR CHEST 1V INDICATIONS: chest pain TECHNIQUE: One view of the chest was acquired. COMPARISON: [facility], CR, XR CHEST 2V, 02/20/2021, 9:55. FINDINGS: Surgical changes and devices: A left shoulder prosthesis is redemonstrated. 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 Lungs and pleura: Lungs are clear. No pleural effusions or pneumothorax. Mediastinum: Mediastinal contours appear normal. Heart size is normal. Bones and chest wall: No suspicious bony lesions. Overlying soft tissues appear unremarkable. IMPRESSION: 1. No acute cardiopulmonary disease. Dictated by: Jhonny Cardoza M.D. on 06/03/2022 at 20:58 Approved by: Jhonny Cardoza M.D. on 06/03/2022 at 20:59
[2022-06-03 19:55] LABS: Add Manual Diff / Slide Review NO; Basophils Absolute Auto 100 /uL (0-100); Basophils Percent Auto 0.8 % (0-2); Eosinophils Absolute Auto 200 /uL (0-450); Eosinophils Percent Auto 3.1 % (2-4); Lymphocytes Absolute Auto 2200 /uL (1100-4500); Lymphocytes Percent Auto 31.7 % (25-40); Mean Corpuscular HGB Conc 33.5 % (30-36); Mean Corpuscular Hemoglobin 29.8 PG (26-34); Monocytes Absolute Auto 400 /uL (0-900); Monocytes Percent Auto 6.3 % (3-14); Neutrophils Absolute Auto 4100 /uL (1500-7000); Neutrophils Percent Auto 58.1 % (50-75); Platelet Count 296 X10^3/uL (150-400); Red Blood Cell Count 4.38 X10^6/uL (4.0-5.2); Red Cell Distribution Width 13.8 % (11.6-14.8)
[2022-06-03 20:02] LABS: INR 0.9 (0.9-1.3); Prothrombin Time 10.1 SECONDS (10.1-12.7)
[2022-06-03 20:05] LABS: PTT Partial Thromboplastin Tim 31 SECONDS (26-36)
[2022-06-03 20:11] LABS: COVID19 -Nasal RAPID POSITIVE (Negative)
[2022-06-03 20:12] LABS: Alanine Aminotransferase 21 IU/L (<35); Albumin 4.3 g/dL (3.5-5.0); Albumin Globulin Ratio 1.2 (1.0-2.8); Alkaline Phosphatase 71 U/L (38-126); Aspartate Aminotransferase 29 IU/L (14-36); BUN Creatinine Ratio 27.1 (6-22); Bilirubin Total 0.4 mg/dL (0.2-1.3); Blood Urea Nitrogen 23 mg/dL (7-17); Calcium 9.2 mg/dL (8.4-10.2); Carbon Dioxide 29 mmol/L (22-32); Chloride 101 mmol/L (98-107); Creatine Kinase 56 U/L (30-135); Estimated Glomerular Filt Rate > 60 mL/min (>60); Globulin 3.7 g/dL (1.7-4.1); Glucose 158 mg/dL (80-110); HEMOLYSIS 16 (0-50); Lipase 167 U/L (23-300); Magnesium 1.8 mg/dL (1.6-2.3); Potassium 3.8 mmol/L (3.4-5.1); Sodium 138 mmol/L (137-145)
[2022-06-03] MEDS: ASPIRIN 81 MG CHEW TAB 324 MG PO (20:18)
[2022-06-03 20:22] LABS: Troponin I < 0.012 ng/mL (0.01-0.034)
[2022-06-03 22:03] LABS: D Dimer 532 ng/ml (<500)
[2022-06-03 22:05] LABS: Creatine Kinase 54 U/L (30-135)
[2022-06-03 22:18] LABS: Troponin I < 0.012 ng/mL (0.01-0.034)
== END 2022-06-03 23:58 | disposition left against medical advice (07) ==
PROVIDERS: Emergency Provider Emergency Medicine; PCP Internal Medicine
DX: R07.9 Chest pain, unspecified (principal); U07.1 COVID-19
CPT/HCPCS: 36415; 71045; 80053; 82550; 83690; 83735; 84484; 85025; 85379; 85610; 85730; 87635; 93005; 93010; 99284; C9803

== ENCOUNTER → 2022-12-05 10:09 | Outpatient (CLI) | payer MEDICARE, MEDICAID, SELFPAY ==
--- NOTE | 2022-12-05 10:11 | DI.MG.S_ITS ---
BILATERAL DIGITAL DIAGNOSTIC MAMMOGRAM 3D/2D: 12/05/2022 CLINICAL: 1 year follow up per prior exam. Comparison is made to exams dated: 10/13/2021 mammogram, 09/05/2020 mammogram, 09/05/2019 mammogram, 10/01/2018 mammogram, 09/10/2018 mammogram, and 12/19/2014 mammogram - [facility]. Both breasts are almost entirely fatty (category a/<25% glandular tissue). There is an oval focal asymmetry in the left breast at 7 o'clock middle depth, not significantly changed since 09/05/2020. No other significant masses, calcifications, or other findings are seen in either breast. IMPRESSION: BENIGN Left breast focal asymmetry at 7 o'clock middle depth, not significantly changed since 09/05/2020. This finding has demonstrated two years of stability and is consistent with a benign process. A 1 year screening mammogram is recommended. Findings and recommendations were conveyed to the patient during today's evaluation. Based on the Tyrer Cuzick model (a risk assessment model) the patient's lifetime risk is 2.3% and her 10 year risk is 1.5%. According to the ACR, ACS, and NCCN guidelines, an annual breast MRI exam along with mammogram is recommended if the patient's lifetime risk is 20% or greater. This exam was interpreted at Station ID: [id number]. NOTE: For mammograms, a report in lay terms will be sent to the patient. Approximately 15% of breast malignancies will not be visualized mammographically. In the management of a palpable breast mass, a negative mammogram must not discourage biopsy of a clinically suspicious lesion. Electronically Signed By: Lynne felicianob/:12/05/2022 16:12:59 copy to: RAMIRO MOSS letter sent: Normal Exam ACR BI-RADS Category 2: Benign Finding(s) [id number]
== END ==
PROVIDERS: PCP Internal Medicine; Referring Provider Internal Medicine; Visit Provider Internal Medicine
DX: R92.8 Other abnormal and inconclusive findings on diagnostic imaging of breast (principal); N64.4 Mastodynia; N64.89 Other specified disorders of breast
CPT/HCPCS: 77066; G0279

== ENCOUNTER → 2024-04-04 13:23 | Outpatient (CLI) | payer MEDICARE, SELFPAY ==
--- NOTE | 2024-04-04 | DI.MG.S_ITS ---
BILATERAL DIGITAL SCREENING MAMMOGRAM 3D/2D WITH CAD: 04/04/2024 CLINICAL: Routine screening. Comparison is made to exams dated: 12/05/2022 mammogram, 10/13/2021 mammogram, and 09/05/2020 mammogram - [facility]. The breasts are almost entirely fatty (category a/<25% glandular tissue). Current study was also evaluated with a Computer Aided Detection (CAD) system. There is a benign focal asymmetry in the left breast. No significant masses, calcifications, or other findings are seen in either breast. There has been no significant interval change. IMPRESSION: BENIGN There is no mammographic evidence of malignancy. A 1 year screening mammogram is recommended. Based on the Tyrer Cuzick model (a risk assessment model) the patient's lifetime risk is 2.2% and her 10 year risk is 1.5%. According to the ACR, ACS, and NCCN guidelines, an annual breast MRI exam along with mammogram is recommended if the patient's lifetime risk is 20% or greater. This exam was interpreted at Station ID: [id number]. NOTE: For mammograms, a report in lay terms will be sent to the patient. Approximately 15% of breast malignancies will not be visualized mammographically. In the management of a palpable breast mass, a negative mammogram must not discourage biopsy of a clinically suspicious lesion. Electronically Signed By: Manohar hussein/tabby:04/04/2024 16:12:23 copy to: RAMIRO MOSS letter sent: Normal Exam ACR BI-RADS Category 2: Benign
== END ==
PROVIDERS: PCP Internal Medicine; Referring Provider Internal Medicine; Visit Provider Internal Medicine
DX: Z12.31 Encounter for screening mammogram for malignant neoplasm of breast (principal); R92.313 Mammographic fatty tissue density, bilateral breasts
CPT/HCPCS: 77063; 77067